=== PATIENT | male | born 2000 | race Hispanic/Latino ===

== ENCOUNTER 2022-02-20 19:23 | Emergency (ER) | payer SELFPAY ==
[2022-02-20 20:04] VITALS: BP 121/99; PULSE 68; RESP 16; TEMP 37.5; O2SAT 100
--- NOTE | 2022-02-20 21:15 | ED.EAR ---
HPI - Ear Problem General Chief complaint: Ear Stated complaint: ear pain Time Seen by Provider: 02/20/22 21:16 Source: patient, family, RN notes reviewed, old records reviewed and flight crew scheduler Mode of arrival: ambulatory Limitations: language barrier History of Present Illness HPI Narrative: 21-year-old male who presents to [facility] care accompanied by friend who is acting as flight crew scheduler with complaints of pain to left ear for the past 4 days, Patient states he has had purulent drainage from his left ear and also has decreased hearing and pain. Patient reports no known fevers, chills or sweats, states no cough congestion or any body aches. 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 MD Complaint: ear pain and ear discharge Location: left ear Duration: constant Severity: moderate Discharge from ear: Reports yes - purulent Related Data Allergies Allergy/AdvReac Type Severity Reaction Status Date / Time No Known Allergies Allergy Verified 02/20/22 20:42 Review of Systems Review of Systems: CONSTITUTIONAL: Denies fever, chills, or sweats. EYES: Denies visual changes, redness, or discharge. ENT: Denies rhinorrhea, congestion, sore throat, positive for left ear otalgia. CARDIOVASCULAR: Denies chest pain, palpitations, or edema. RESPIRATORY: Denies cough or dyspnea. GASTROINTESTINAL: Denies abdominal pain, nausea, vomiting, or diarrhea. GENITOURINARY: Denies dysuria or hematuria. SKIN: Denies rash or itching. MUSCULOSKELETAL: Denies back pain, joint pain, or myalgia. NEUROLOGIC: Denies headache, numbness, or weakness. PSYCHIATRIC: Denies anxiety or depression. All systems reviewed & are unremarkable except as noted in HPI and below PMFSH Social History Social History (Updated 02/24/22 @ 13:33 by Marta Cooney NP) Smoking status: Never smoker Alcohol intake: current Alcohol use details: social Substance use type: does not use Additional living arrangements comments: is from [place] working in [facility] as migrant worker Gender identity (if verbalized by the patient): Male Comments At time of signature, agree with nursing past medical, surgical, social and family history. There is no relevant family history pertinent to the presenting complaint Exam Narrative: GENERAL: Well-appearing, well-nourished, and in no acute distress. HEAD: Normocephalic, atraumatic. EYES: PERRLA and EOMI. ENT: Nares clear, no rhinorrhea or epistaxis. Mucous membranes moist.Left TM red with purulent drainage noted from ear with excoriation of ear canal also. Right TM normal with good light reflex, throat pink with no lesions or exudates or tonsil swelling NECK: Supple.no lymphadenopathy CHEST: Clear to auscultation. No respiratory distress.SAO2 100% on room air HEART: Regular rate and rhythm. No murmur heard. Normal peripheral pulses. ABDOMEN: Soft, nontender, nondistended, normal active bowel sounds. EXTREMITIES: Normal range of motion. No edema. SKIN: Warm, dry, no rash. NEURO: No focal deficits. Alert and oriented x3. Course Course Level of Care: Express Care Visit Vital Signs Vital signs: Vital Signs Temperature 37.5 C 02/20/22 20:04 Pulse Rate 68 02/20/22 20:04 Respiratory Rate 16 02/20/22 20:04 Blood Pressure 121/99 H 02/20/22 20:04 Pulse Oximetry 100 02/20/22 20:04 Oxygen Delivery Room Air 02/20/22 20:04 Temperature 37.5 C 02/20/22 20:04 Pulse Rate 68 02/20/22 20:04 Respiratory Rate 16 02/20/22 20:04 Blood Pressure 121/99 H 02/20/22 20:04 Pulse Oximetry 100 02/20/22 20:04 Oxygen Delivery Room Air 02/20/22 20:04 Medical Decision Making Differential Diagnosis Differential Diagnosis: Otitis externa, otitis media, URI, viral syndrome, otalgia, decreased hearing Medical Records Medical records reviewed: Yes I reviewed the external patient's medical records. Vital Signs Vital Signs: Vital Signs Temperature 37.5 C 02/20/22 20:04 Pulse Rate 68 02/20/22 20:04 Respi
== END 2022-02-20 21:40 | disposition home or self-care (01) ==
PROVIDERS: Emergency Provider Registered Nurse
DX: H60.92 Unspecified otitis externa, left ear (principal); H66.92 Otitis media, unspecified, left ear
CPT/HCPCS: 99213; G0463